=== PATIENT | male | born 1945 | race Caucasian/White ===

== ENCOUNTER → 2016-08-11 | Outpatient (CLI) | payer MEDICARE, OTHER ==
[~2016-08-11] MED LIST: ALBU8.5H2 IH; ASCO1TAB36 PO; BUDE10.22 IH; CYAN1TAB26 PO; IPRA3AMP11 INH; METF500T4 PO; MULT-850 PO; ROSU20TA14 PO; SAWP1CAP PO
--- OUTSIDE RECORDS SUMMARY | 2016-08-11 08:27 | XMS REPORT | Continuity of Care Document ---
Author Author [facility] Organization [facility] Address Unknown Phone Unavailable Allergies Active Description Code Type Severity Reaction Onset Reported/Identified Relationship to Patient Clinical Status Yes No Known Drug Allergies [id number] Drug Allergy Unknown N/ A 07/25/2014 Medications Problems Date Dx Coded Attending Type Code Diagnosis Diagnosed By 07/23/2014 Ot 562.10 07/23/2014 Ot 599.70 07/25/2014 Ot 562.10 07/25/2014 Ot 599.70 07/25/2014 MIKE COY, ALAINA Haywood Ot 562.10 DIVERTICULOSIS COLON (W/O MENT OF HEMORR 07/25/2014 MIKE COY, ALAINA Haywood Ot V12.72 PERSONAL HISTORY OF COLONIC POLYPS 07/25/2014 MIKE COY, ALAINA Haywood Ot V16.0 FAMILY HX-GI MALIGNANCY 07/25/2014 MKIE COY, ALAINA Haywood Ot V76.51 SCREEN MAL NEOP-COLON 09/27/2014 Ot 786.09 10/04/2014 Ot 786.09 10/08/2014 MIKE COY, ALAINA Haywood Ot V72.84 10/08/2014 MIKE COY, ALAINA Haywood Ot V72.84 10/08/2014 MIKE COY, ALAINA Haywood Ot V72.84 10/09/2014 MIKE COY, ALAINA [place] Ot V72.84 10/09/2014 MIKE COY, ALAINA Haywood Ot V72.84 10/09/2014 MIKE COY, ALAINA Haywood Ot V72.84 01/22/2015 Ot 562.10 01/22/2015 Ot 599.70 01/22/2015 MIKE COY, ALAINA Haywood Ot V72.84 01/22/2015 Ot 786.09 01/22/2015 REN MATIAS APRN Ot 786.09 01/22/2015 REN MATIAS APRN Ot 786.09 02/14/2015 REN MATIAS APRN Ot 786.09 02/20/2015 REN MATIAS APRN Ot 786.09 01/29/2016 Ot 562.10 DIVERTICULOSIS COLON (W/O MENT OF HEMORR 01/29/2016 Ot 599.70 HEMATURIA, UNSPECIFIED 01/29/2016 MIKE COY, ALAINA Haywood Ot V72.84 EXAM PRE-OPERATIVE NOS 01/29/2016 Ot 786.09 RESPIRATORY ABNORM NEC 01/29/2016 REN MATIAS APRN Ot 786.09 RESPIRATORY ABNORM NEC 01/29/2016 HUBERT CHANG DO Ot J44.1 CHRONIC OBSTRUCTIVE PULMONARY DISEASE W 01/29/2016 HUBERT CHANG DO Ot J44.1 CHRONIC OBSTRUCTIVE PULMONARY DISEASE W 01/30/2016 HUBERT CHANG DO M Ot J44.9 CHRONIC OBSTRUCTIVE PULMONARY DISEASE, U 01/30/2016 HUBERT CHANG DO Ot R06.00 DYSPNEA, UNSPECIFIED 01/30/2016 HUBERT CHANG DO M Ot R91.1 SOLITARY PULMONARY NODULE 02/04/2016 HUBERT CHANG DO Ot J44.9 CHRONIC OBSTRUCTIVE PULMONARY DISEASE, U 02/04/2016 HUBERT CHANG DO M Ot R06.00 DYSPNEA, UNSPECIFIED 02/04/2016 BERNARDOHUBERT JASSO DO M Ot R91.1 SOLITARY PULMONARY NODULE 02/20/2016 HUBERT CHANG DO Ot J44.9 CHRONIC OBSTRUCTIVE PULMONARY DISEASE, U 02/20/2016 HUBERT CHANG DO M Ot R06.00 DYSPNEA, UNSPECIFIED 02/20/2016 HUBERT CHANG DO M Ot R91.1 SOLITARY PULMONARY NODULE 02/26/2016 HUBERT CHANG DO Ot J44.9 CHRONIC OBSTRUCTIVE PULMONARY DISEASE, U 02/26/2016 HUBERT CHANG DO M Ot R06.00 DYSPNEA, UNSPECIFIED 02/26/2016 HUBERT CHANG DO Ot R91.1 SOLITARY PULMONARY NODULE Procedures Results Encounters ACCT No. Visit Date/Time Discharge Status Pt. Type Provider Facility Loc./Unit Complaint [id number] 01/20/2015 09:40:00 2014 23:59:59 CLS Outpatient REN MATIAS APRN [facility] RAD DYSPNEA [id number] 07/25/2014 06:43:00 2014 10:10:00 DIS Outpatient ALAINA MCKEON MD [facility] SDC HX POLYPS [id number] 07/24/2014 05:51:00 2014 23:59:59 CLS Outpatient ALAINA MCKEON MD [facility] PREOP HX DIVERTICULITIS [id number] 01/29/2016 10:00:00 ACT Outpatient HUBERT CHANG DO [facility] RAD COPD [id number] 09/02/2014 15:32:00 Document Registration [id number] 07/17/2012 09:01:00 Document Registration
--- NOTE | 2016-08-11 10:03 | Diagnostic Imaging Report ---
PROCEDURE: CT chest without contrast. TECHNIQUE: Multiple contiguous axial images were obtained through the chest without the use of intravenous contrast. INDICATION: Lung nodules, emphysema. COMPARISON: The previous CT chest exam of 09/02/2014 noted emphysematous changes involving both lungs as well as multiple small (0.6 cm or less) pulmonary nodules. These nodules seem stable on the subsequent CT chest examinations of 01/20/2015 and 01/29/2016. The 01/29/2016 exam did note a new area of increased density in the medial aspect of the left lung base. FINDINGS: On this exam, the pulmonary nodule seen previously appear stable. Most likely they are benign. The 9 mm nodular density in the medial aspect of the left lung base noted on the prior study is not visualized on this study. I suspect that density was secondary to a small atelectasis and/or infiltrate. There are still alveolar/interstitial infiltrates in both lung bases and the density in the right lung base is somewhat greater than on the prior exam. This may be secondary to mild acute pneumonia/atelectasis. Clinical followup is recommended. The heart size is within normal limits. The aorta is stable in appearance. There is no obvious mediastinal or hilar adenopathy. The thyroid gland is unremarkable. The sections through the upper abdomen fail to show any sign of an acute abnormality. The bone windows show no sign of a fracture or for destructive lesion. IMPRESSION: 1. The small pulmonary nodules seen on the previous exams are again evident and do not appear to have changed adversely. Most likely, these nodules are benign. As the nodules appear stable over a roughly two year period, I do not feel that any further CT surveillance is necessary. 2. The nodular density in the left lung base seen previously is no longer evident. However, there does seem to be a small alveolar/interstitial infiltrate in the right lower lobe. This may be related to mild acute pneumonia/atelectasis. Clinical followup is recommended. 3. There is no acute cardiopulmonary abnormality noted otherwise. Dictated by: Dictated on workstation # [id number]
== END ==
LOC: RAD 08:24
PROVIDERS: ATTEND Nurse Practitioner Family
DX: R06.00 Dyspnea, unspecified (principal); R91.1 Solitary pulmonary nodule; J43.9 Emphysema, unspecified; Z72.0 Tobacco use
CPT/HCPCS: 71250

== ENCOUNTER → 2017-07-04 | Outpatient (CLI) | payer MEDICARE ==
--- NOTE | 2017-07-04 12:12 | Diagnostic Imaging Report ---
PROCEDURE: CT chest without contrast. TECHNIQUE: Multiple contiguous axial images were obtained through the chest without the use of intravenous contrast. INDICATION: Lung nodule. Exam compared with studies most recently 08/11/2016. FINDINGS: Bibasilar posterior sulcal partial atelectasis improved from the prior. There is some mild regional cylindrical bronchiectasis. Some chronic airway thickening is a redemonstrated finding. Heterogeneous air trapping and features of centrilobular emphysema chronic. No new or dominant lung mass. No suspicious nodularity. No evidence for thoracic adenopathy. IMPRESSION: Improvements in dependent basilar atelectasis. Underlying COPD and mild bronchiectasis chronic. No new mass or adverse development. Dictated by: Dictated on workstation # [id number]
== END ==
LOC: RAD 10:22
PROVIDERS: ATTEND Nurse Practitioner Family
DX: J98.11 Atelectasis (principal); J44.9 Chronic obstructive pulmonary disease, unspecified; R91.1 Solitary pulmonary nodule; Z72.0 Tobacco use
CPT/HCPCS: 71250

== ENCOUNTER → 2018-08-23 | Outpatient (CLI) | payer MEDICARE ==
--- NOTE | 2018-08-23 18:44 | Diagnostic Imaging Report ---
INDICATION: [id number] smoking history, cessation one year ago. COMPARISON: 07/04/2017. FINDINGS: Some bibasilar atelectatic changes and curvilinear subpleural zones of scarring stable from prior. Few bibasilar subcentimeter juxtapleural nodular foci unchanged likely secondary to the scarring itself. No dominant or suspect lung mass. No spiculated lesion. No evidence for adenopathy. No effusion or pneumothorax. Some heterogeneous air trapping most pronounced in the apices unchanged. Some mild central cylindrical bronchiectasis and mild thickening of the ectatic airways stable. IMPRESSION: Air trapping, COPD, airway ectasia, thickening with basilar scarring, and subpleural benign nodules unchanged. No suspicious finding. LUNG-RADS CATEGORY: 2 - Benign appearance or behavior. Solid nodule(s): <6mm OR new <4mm. Continued low-dose CT follow-up in one year's time recommended. Dictated by: Dictated on workstation # [id number]
== END ==
LOC: RAD 10:17
PROVIDERS: ATTEND Nurse Practitioner Family
DX: Z12.2 Encounter for screening for malignant neoplasm of respiratory organs (principal); J43.9 Emphysema, unspecified; R91.8 Other nonspecific abnormal finding of lung field; Z87.891 Personal history of nicotine dependence

== ENCOUNTER → 2019-08-20 | Outpatient (CLI) | payer MEDICARE ==
[~2019-08-20] MED LIST changes: +RT-ALBUTEROL SULF 2.5 MG/3 ML PRE-MIX VIAL INH ONE
== END ==
LOC: RT 09:20
PROVIDERS: ATTEND Internal Medicine Critical Care Medicine
DX: J43.9 Emphysema, unspecified (principal); R91.1 Solitary pulmonary nodule; Z72.0 Tobacco use
CPT/HCPCS: 94060; 94726; 94729

== ENCOUNTER → 2019-08-27 | Outpatient (CLI) | payer MEDICARE ==
[~2019-08-27] MED LIST changes: -RT-ALBUTEROL SULF 2.5 MG/3 ML PRE-MIX VIAL INH ONE
--- NOTE | 2019-08-27 09:06 | Diagnostic Imaging Report ---
EXAM: CT CHEST SCREENING WO. INDICATION: 50 pack year smoking history. Quit 1.5 years ago. Cough. COMPARISON: Low-dose lung screening chest CT 08/23/2018. FINDINGS: Advanced centrilobular emphysema. Diffuse mild bronchiectasis and bronchial wall thickening is chronic. Stable scarring in the lung bases. Stable 0.5 cm pulmonary nodule in the right middle lobe. Stable 0.5 cm solid pulmonary nodule in the right lower lobe. Scattered 0.2 to 0.4 cm pulmonary nodules in the left lower lobe. Stable 0.7 cm solid pulmonary nodule in the left upper lobe. No solid endobronchial lesions. There are some secretions in the airways. No pleural effusion or pneumothorax. The osseous structures are intact. Moderate atherosclerotic calcifications. Normal heart size. No pericardial effusion. No mediastinal, hilar, or axillary lymphadenopathy. No acute findings in the visualized upper abdomen. IMPRESSION: 1. Stable bilateral solid pulmonary nodules as above. No new suspicious pulmonary nodules. Recommend continued annual screening with low-dose chest CT in 12 months. 2. Advanced centrilobular emphysema, bronchial wall thickening, bronchiectasis, and scattered scarring are stable. Lung-RADS category: 2. MODIFIER: None. Please note that the low-dose technique of this chest CT is of nondiagnostic quality. The study is only intended for lung cancer screening in high-risk patients. Dictated by: Dictated on workstation # [id number]
== END ==
LOC: RAD 08:14
PROVIDERS: ATTEND Nurse Practitioner Family
DX: Z12.2 Encounter for screening for malignant neoplasm of respiratory organs (principal); J43.2 Centrilobular emphysema; J47.9 Bronchiectasis, uncomplicated; J98.09 Other diseases of bronchus, not elsewhere classified; R91.8 Other nonspecific abnormal finding of lung field; Z72.0 Tobacco use

== ENCOUNTER 2020-05-21 00:05 | Observation (INO) | payer MEDICARE ==
[2020-05-21] VITALS (15 sets, daily range): BP systolic 132–160; BP diastolic 70–88
[~2020-05-21] VITALS: Ht 175 cm; Wt 81.1 kg
[2020-05-21 00:58] LABS: BASOPHILS # (AUTO) 0.1 10^3/uL (0.0-0.1); BASOPHILS % (AUTO) 1 % (0-10); EOSINOPHILS # (AUTO) 0.3 10^3/uL (0.0-0.3); EOSINOPHILS % (AUTO) 1 % (0-10); HEMATOCRIT 42 % (40-54); HEMOGLOBIN 13.9 g/dL (13.3-17.7); LYMPHOCYTES # (AUTO) 1.9 10^3/uL (1.0-4.0); LYMPHOCYTES % (AUTO) 7 % (12-44); MEAN CORPUSCULAR HEMOGLOBIN 29 pg (25-34); MEAN CORPUSCULAR HGB CONC 33 g/dL (32-36); MEAN CORPUSCULAR VOLUME 88 fL (80-99); MONOCYTES % (AUTO) 8 % (0-12); NEUTROPHILS # (AUTO) 21.9 10^3/uL (1.8-7.8); NEUTROPHILS % (AUTO) 83 % (42-75); PLATELET COUNT 262 10^3/uL (130-400); WHITE BLOOD COUNT 26.4 10^3/uL (4.3-11.0)
[2020-05-21] MEDS ORDERED: methylPREDNISolone 125 MG (Solu-MEDROL) VIAL IVP ONE (01:00)
[2020-05-21] MEDS ORDERED: ALBUTEROL/IPRATROP (COMBIVENT RESPIMAT) 4 GM INHALER IH PRN (01:00)
[2020-05-21] MEDS: NITROGLYCERIN 0.4 MG SL TABS BTL 25'S SL PRN ×3 (01:00→01:16)
--- NOTE | 2020-05-21 01:06 | NUR ---
O2 SATS 97-99% ON 4L VIA NC. O2 DECREASED TO 3L AT THIS TIME.
--- NOTE | 2020-05-21 01:09 | ED Chest Pain ---
General Chief Complaint: Chest Pain Stated Complaint: CP Nursing Triage Note: sudden onset chest pain since 199905/20/2020. c/o pain with inspiration. Nursing Sepsis Screen: No Definite Risk Source: patient Exam Limitations: no limitations History of Present Illness Date Seen by Provider: May 21, 2020 Time Seen by Provider: 00:30 Initial Comments This is 74-year-old gentleman presents to the emergency room with fairly abrupt onset of central chest pain and labored breathing starting around 20:00 last night. He is moving air poorly. He has known history of COPD and takes Symbicort and albuterol inhalers. He quit smoking many years ago. He denies any cardiac history except hypertension. He is notably hypertensive on assessment. He denies any cough, fever, nausea, vomiting, diarrhea, or other symptoms of acute infectious illness. Patient took a full aspirin this evening at home. Patient does sometimes use oxygen in the mornings as needed at home. He does not wear it continuously. Oxygen saturations on arrival were in the low 80s on room air and he was in respiratory distress. His chest pain is described as sharp and in the center of the chest, worsening with inspiration. Allergies and Home Medications Allergies Coded Allergies: No Known Drug Allergies (Unverified , 07/25/14) Home Medications Albuterol 8.5 Gm Hfa.aer.ad, 2 PUFF IH RTQ4HR, (Reported) 1 PUFFS Albuterol/Ipratropium 3 Ml Nebu, 3 ML INH Q4H PRN for PRN, (Reported) Ascorbate Calcium/Bioflav 1 Each Tablet, 1 EACH PO BID, (Reported) Budesonide/Formoterol Fumarate 10.2 Gm Hfa.aer.ad, 2 PUFF IH DAILY, (Reported) Cyanocobalamin/Folic Acid 1 Each Tablet, 1 EACH PO DAILY, (Reported) Metformin Hcl 500 Mg Tablet, 500 MG PO BID, (Reported) Multivitamins W-Minerals/Lut 1 Each Tablet, 1 EACH PO DAILY, (Reported) Rosuvastatin Calcium 20 Mg Tablet, 1 EACH PO DAILY, (Reported) Sawpalmtofrtxt/Zinc Picolinate 1 Each Capsule, 1 EACH PO BID, (Reported) Patient Home Medication List Home Medication List Reviewed: Yes Review of Systems Review of Systems Constitutional: no symptoms reported EENTM: No Symptoms Reported Respiratory: See HPI Cardiovascular: See HPI Gastrointestinal: No Symptoms Reported Genitourinary: No Symptoms Reported Musculoskeletal: no symptoms reported Skin: no symptoms reported Psychiatric/Neurological: No Symptoms Reported Endocrine: No Symptoms Reported Hematologic/Lymphatic: No Symptoms Reported Past Pplryoc-Ajlcus-Krdyjv Hx Past Med/Social Hx: Reviewed Nursing Past Med/Soc Hx Patient Social History Alcohol Use: Denies Use Recreational Drug Use: No Smoking Status: Former Smoker 2nd Hand Smoke Exposure: No Recent Foreign Travel: No Contact w/Someone Who Travel: No Recent Infectious Disease Expo: No Recent Hopitalizations: No Immunizations Up To Date Tetanus Booster (TDap): Less than 5yrs Date of Pneumonia Vaccine: Jun 20, 2013 Date of Influenza Vaccine: Mar 25, 2014 Seasonal Allergies Seasonal Allergies: No Past Medical History Surgeries: Yes Abdominal (Colonoscopy with polypectomy), Adenoidectomy, Tonsillectomy Respiratory: Yes COPD Cardiac: Yes High Cholesterol, Hypertension Neurological: No Genitourinary: No Gastrointestinal: No Musculoskeletal: No Endocrine: Yes Diabetes, Non-Insulin dep HEENT: No Cancer: No Psychosocial: No Integumentary: No Blood Disorders: No Physical Exam Vital Signs Vital Signs - First Documented Capillary Refill : Less Than 3 Seconds Height, Weight, BMI Height: 5'9.00" Weight: 175lbs. oz. [id number]; 25.00 BMI Method: General Appearance: WD/WN, Moderate Distress HEENT: PERRL/EOMI, Normal ENT Inspection Neck: Normal Inspection Respiratory: Lungs Clear, No Accessory Muscle Use, No Respiratory Distress, Decreased Breath Sounds, Other (Diminished with decreased air movement. No luisa wheezing. Prolonged expiratory phase with lip pursing.) Cardiovascular: Regular Rate, Rhythm, No Edema, No Murmur, Normal Peripheral Pulses Gastrointestinal: Normal Bowel Sounds, Non Tender, Soft Extremity: Normal Inspection, Non Tender, No Calf Tenderness, No Pedal Edema Neurologic/Psychiatric: Alert, Oriented x3, No Motor/Sensory Deficits, Normal Mood/Affect, jewelry coater II-XII Norm as Tested Skin: Normal Color, Warm/Dry Focused Exam Lactate Level 05/21/20 01:40: Lactic Acid Level 1.38 Lactic Acid Level Laboratory Tests Test 05/21/20 01:40 Lactic Acid Level 1.38 MMOL/L (0.50-2.00) Progress/Results/Core Measures Results/Orders Lab Results Laboratory Tests Test 12/2/20 00:45 05/21/20 00:50 05/21/20 01:40 05/21/20 02:55 Range/Units White Blood Count 26.4 H 4.3-11.0 10^3/uL Red Blood Count 4.79 4.30-5.52 10^6/uL Hemoglobin 13.9 13.3-17.7 g/dL Hematocrit 42 40-54 % Mean Corpuscular Volume 88 80-99 fL Mean Corpuscular Hemoglobin 29 25-34 pg Mean Corpuscular Hemoglobin Concent 33 32-36 g/dL Red Cell Distribution Width 14.7 H 10.0-14.5 % Platelet Count 262 130-400 10^3/uL Mean Platelet Volume 9.0 9.0-12.2 fL Immature Granulocyte % (Auto) 1 % Neutrophils (%) (Auto) 83 H 42-75 % Lymphocytes (%) (Auto) 7 L 12-44 % Monocytes (%) (Auto) 8 0-12 % Eosinophils (%) (Auto) 1 0-10 % Basophils (%) (Auto) 1 0-10 % Neutrophils # (Auto) 21.9 H 1.8-7.8 10^3/uL Lymphocytes # (Auto) 1.9 1.0-4.0 10^3/uL Monocytes # (Auto) 2.0 H 0.0-1.0 10^3/uL Eosinophils # (Auto) 0.3 0.0-0.3 10^3/uL Basophils # (Auto) 0.1 0.0-0.1 10^3/uL Immature Granulocyte # (Auto) 0.3 H 0.0-0.1 10^3/uL Neutrophils % (Manual) 81 % Lymphocytes % (Manual) 8 % Monocytes % (Manual) 9 % Band Neutrophils 2 % Blood Morphology Comment NORMAL Prothrombin Time 12.8 12.2-14.7 SEC INR Comment 0.9 0.8-1.4 Activated Partial Thromboplast Time 32 24-35 SEC D-Dimer < 0.27 0.00-0.49 UG/ML Sodium Level 132 L 135-145 MMOL/L Potassium Level 3.8 3.6-5.0 MMOL/L Chloride Level 95 L 98-107 MMOL/L Carbon Dioxide Level 24 21-32 MMOL/L Anion Gap 13 5-14 MMOL/L Blood Urea Nitrogen 20 H 7-18 MG/DL Creatinine 0.94 0.60-1.30 MG/DL Estimat Glomerular Filtration Rate > 60 BUN/Creatinine Ratio 21 Glucose Level 130 H 70-105 MG/DL Calcium Level 9.6 8.5-10.1 MG/DL Corrected Calcium 9.3 8.5-10.1 MG/DL Magnesium Level 1.8 1.6-2.4 MG/DL Total Bilirubin 0.4 0.1-1.0 MG/DL Aspartate Amino Transf (AST/SGOT) 16 5-34 U/L Alanine Aminotransferase (ALT/SGPT) 15 0-55 U/L Alkaline Phosphatase 68 40-136 U/L Lactate Dehydrogenase 130 125-220 U/L Myoglobin 48.5 10.0-92.0 NG/ML Troponin I < 0.028 <0.028 NG/ML C-Reactive Protein High Sensitivity 0.30 0.00-0.50 MG/DL B-Type Natriuretic Peptide 10.4 <100.0 PG/ML Total Protein 6.9 6.4-8.2 GM/DL Albumin 4.4 3.2-4.5 GM/DL Procalcitonin 0.02 <0.10 NG/ML Coronavirus 2019 (NANCY) Negative Negative Lactic Acid Level 1.38 0.50-2.00 MMOL/L Urine Color YELLOW Urine Clarity CLEAR Urine pH 6.5 5-9 Urine Specific [place] 1.015 L 1.016-1.022 Urine Protein NEGATIVE NEGATIVE Urine Glucose (UA) NEGATIVE NEGATIVE Urine Ketones 1+ H NEGATIVE Urine Nitrite NEGATIVE NEGATIVE Urine Bilirubin NEGATIVE NEGATIVE Urine Urobilinogen 0.2 < = 1.0 MG/DL Urine Leukocyte Esterase NEGATIVE NEGATIVE Urine RBC (Auto) NEGATIVE NEGATIVE Urine RBC NONE /HPF Urine WBC NONE /HPF Urine Squamous Epithelial Cells RARE /HPF Urine Crystals NONE /LPF Urine Bacteria NEGATIVE /HPF Urine Casts NONE /LPF Urine Mucus SMALL H /LPF Urine Culture Indicated CULTURE PENDING Micro Results Microbiology 05/21/20 Influenza Types A,B Antigen (LUIS) - Final, Complete My Orders Orders - HORACE CHIU MD Cbc With Automated Diff (05/21/20 00:46) Magnesium (05/21/20 00:46) Chest 1 View, Ap/Pa Only (05/21/20 00:46) Ekg Tracing (05/21/20 00:46) Comprehensive Metabolic Panel (05/21/20 00:46) Myoglobin Serum (05/21/20 00:46) Protime With Inr (05/21/20 00:46) Partial Thromboplastin Time (05/21/20 00:46) O2 (05/21/20 00:46) Monitor-Rhythm Ecg Trace Only (05/21/20 00:46) Lipid Panel (05/22/20 06:00) Ed Iv/Invasive Line Start (05/21/20 00:46) BNP (05/21/20 00:46) Troponin I (05/21/20 00:46) Nitroglycerin 0.4 Mg Btl 25's (Nitrostat (05/21/20 01:00) Albuterol/Ipratropium Inhaler (Combivent (05/21/20 01:00) Rt Request For Service (05/21/20 00:46) Methylprednisolone Sod Succ (Solu-Medrol (05/21/20 01:00) Procalcitonin (Pct) (05/21/20 00:48) Hs C Reactive Protein (05/21/20 00:48) LDH (05/21/20 00:48) Influenza A And B Antigens (05/21/20 00:48) Covid 19 Inhouse Test (05/21/20 00:48) Fibrin Degradation Products (05/21/20 00:45) Manual Differential (05/21/20 00:45) Ns Iv 1000 Ml (Sodium Chloride 0.9%) (05/21/20 01:24) Blood Culture (05/21/20 01:35) Sputum Culture (05/21/20 01:35) Urinalysis (05/21/20 01:35) Urine Culture (05/21/20 01:35) Vital Signs Adult Sepsis Patie Q15M (05/21/20 01:35) Remove Rings In Anticipation O (05/21/20 01:35) Lactic Acid Analyzer (05/21/20 01:35) Morphine Injection (Morphine Injection (05/21/20 01:51) Ct Angio Chest W (05/21/20 02:05) Ceftriaxone For Iv Use (Rocephin For I (05/21/20 02:15) Ketorolac Injection (Toradol Injection) (05/21/20 03:00) Coronavirus Sars-Cov-2 So 2018 (05/21/20 03:13) Medications Given in ED Current Medications Medications Dose Ordered Sig/Missy Route Start Time Stop Time Status Last Admin Dose Admin Albuterol/ Ipratropium 4 PUFF QID PRN IH 05/21/20 01:00 05/21/20 00:57 4 GM Ceftriaxone Sodium 1000 mg/ Sterile Water 10 ml @ 200 mls/hr ONCE ONCE IV 05/21/20 02:15 05/21/20 02:17 DC 05/21/20 02:34 200 MLS/HR Ketorolac Tromethamine 30 mg ONCE ONCE IVP 05/21/20 03:00 05/21/20 03:02 DC 05/21/20 03:25 30 MG Methylprednisolone Sodium Succinate 125 mg ONCE ONCE IVP 05/21/20 01:00 05/21/20 01:01 DC 05/21/20 00:57 125 MG Nitroglycerin 0.4 mg UD PRN SL 05/21/20 01:00 05/21/20 01:18 DC 05/21/20 01:16 0.4 MG Sodium Chloride 1,000 ml @ ud STK-MED ONCE .ROUTE 05/21/20 01:24 05/21/20 01:26 DC 05/21/20 01:28 999 MLS/HR Vital Signs/I&O 05/21/20 05/21/20 05/21/20 00:33 00:33 00:34 Temp 35.9 Pulse 75 Resp 16 B/P (MAP) 170/101 (124) Pulse Ox 98 O2 Delivery Nasal Cannula Nasal Cannula Nasal Cannula O2 Flow Rate 2.00 4.0 4.00 Blood Pressure Mean: 124 Progress Progress Note #1: Time: 01:12 Progress Note Patient seen and examined. Combivent inhaler administered along with Solu-Medrol and nitroglycerin. He is beginning to feel better. Supplemental oxygen was applied at 4 L/min. Chest pain is dissipating but still present. Progress Note #2: Time: 03:09 Progress Note Patient has a history of pulmonary nodules that have been followed by CT scan. He also continues to have some fairly significant pleuritic chest pain. For this reason a CT angiogram of the chest was obtained. It was relatively stable from prior. We will admit him for COPD exacerbation and chest pain. Toradol will be given for further treatment of the pain. Because of leukocytosis we will continue with antibiotics. Rocephin is being given in the ER. Steroids will also be continued. Covid PCR swab was obtained and patient remains PUI. Initial ECG Impression Date: May 21, 2020 Initial ECG Impression Time: 00:39 Initial ECG Rate: 67 Initial ECG Rhythm: Normal Sinus Comment Normal sinus rhythm with no ST elevation or depression. Short GA interval with RBBB. Some artifact obscuring interpretation. Diagnostic Imaging Diagonstic Imaging: Xray Plain Films/CT/US/NM/MRI: chest Comments Chest x-ray reviewed by me and stat rad report reviewed. Probable COPD with mild bibasilar interstitial opacities. Diagonstic Imaging: CT Plain Films/CT/US/NM/MRI: chest Comments CT angiogram of the chest viewed by me and stat rad report reviewed. There is no evidence of pulmonary emboli or mass. Bibasilar infiltrates were relatively unchanged from prior. Departure Communication (Admissions) Time/Spoke to Admitting Phy: 03:00 Dr. Angeli Posada and Dr. Springer consulted by messaging. Impression Primary Impression: Chest pain Qualified Codes: R07.9 - Chest pain, unspecified Additional Impression: COPD exacerbation Disposition: HOME, SELF-CARE Condition: Improved Admissions Decision to Admit Reason: Admit from ER (General) Decision to Admit/Date: May 21, 2020 Time/Decision to Admit Time: 00:45 Departure-Patient Inst. Referrals: MINI MCCALLUM DO (PCP/Family) Primary Care Physician HORACE CHIU MD May 21, 2020 01:09
[2020-05-21 01:14] LABS: ALBUMIN 4.4 GM/DL (3.2-4.5); CHLORIDE 95 MMOL/L (98-107); POTASSIUM 3.8 MMOL/L (3.6-5.0); SODIUM 132 MMOL/L (135-145)
[2020-05-21 01:15] LABS: CALCIUM 9.6 MG/DL (8.5-10.1)
[2020-05-21 01:16] LABS: GLUCOSE 130 MG/DL (70-105); TOTAL PROTEIN 6.9 GM/DL (6.4-8.2)
[2020-05-21 01:17] LABS: CARBON DIOXIDE 24 MMOL/L (21-32)
[2020-05-21 01:18] LABS: BILIRUBIN,TOTAL 0.4 MG/DL (0.1-1.0)
[2020-05-21 01:20] LABS: ALKALINE PHOSPHATASE 68 U/L (40-136); CREATININE SERUM 0.94 MG/DL (0.60-1.30); GFR ESTIMATED > 60
[2020-05-21 01:21] LABS: BUN/CREATININE RATIO 21
[2020-05-21 01:22] LABS: MAGNESIUM 1.8 MG/DL (1.6-2.4)
[2020-05-21 01:23] LABS: ALANINE AMINOTRANSFERASE 15 U/L (0-55)
[2020-05-21] MEDS ORDERED: NS IV 1000 ML 1,000 ML ONE (01:24)
[2020-05-21 01:25] LABS: BAND NEUTROPHILS 2 %; LYMPHOCYTES % (MANUAL) 8 %; MONOCYTES % (MANUAL) 9 %; NEUTROPHILS % (MANUAL) 81 %
[2020-05-21 01:26] LABS: RBC MORPH NORMAL
--- NOTE | 2020-05-21 01:27 | NUR ---
DR. CHIU NOTIFIED OF BP DROPPING TO 85/54 POST 3RD NITRO SL. NEW ORDERS FOR NS 1L WIDE OPEN AND STARTED AT THIS TIME.
--- NOTE | 2020-05-21 01:30 | NUR ---
BP INCREASED TO 92/62 WITH NS INFUSING.
--- NOTE | 2020-05-21 01:35 | NUR ---
BP 118/60. PT STATES HE IS FEELING BETTER.
[2020-05-21 01:42] LABS: FIBRIN DEGRADATION PRODUCTS < 0.27 UG/ML (0.00-0.49); INR 0.9 (0.8-1.4); PARTIAL THROMBOPLASTIN TIME 32 SEC (24-35); PROTHROMBIN TIME PATIENT 12.8 SEC (12.2-14.7)
[2020-05-21] MEDS ORDERED: morphine INJ 10 MG/ML 1ML (SYR OR VIAL) IVP STA (01:51)
--- NOTE | 2020-05-21 02:05 | NUR ---
DR. CHIU CALLED AND UPDATED PT WHO IS WAITING IN VEHICLE R/T NO VISITORS IN WAITING ROOM D/T COVID. PT TO HAVE CT SCAN WHICH WILL TAKE AT LEAST AN HOUR FOR PROCEDURE AND RESULTS. DR. CHIU TO CALL WITH RESULTS AND FURTHER PLAN OF CARE.
[2020-05-21] MEDS ORDERED: cefTRIAXone FOR IV USE 1,000 MG in WATER (STERILE) FOR INJECTION 10 ML IV ONE (02:15)
[2020-05-21] MEDS ORDERED: KETOROLAC 30 MG/ML VIAL IVP ONE (03:00)
[2020-05-21 03:05] LABS: BILIRUBIN,URINE NEGATIVE (NEGATIVE); CLARITY,URINE CLEAR; COLOR,URINE YELLOW; GLUCOSE, URINE (UA) NEGATIVE (NEGATIVE); KETONES,URINE 1+ (NEGATIVE); LEUKOCYTE ESTERASE ,URINE NEGATIVE (NEGATIVE); NITRITE,URINE NEGATIVE (NEGATIVE); PH,URINE 6.5 (5-9); PROTEIN,URINE NEGATIVE (NEGATIVE)
[2020-05-21 03:28] LABS: BACTERIA,URINE NEGATIVE /HPF; SQUAMOUS EPITHELIAL CELL,UR RARE /HPF
--- NOTE | 2020-05-21 05:10 | NUR ---
ANGELO FRANZ admitted to room 425-1, with an admitting diagnosis of COPD EXACERBATION, PUI, CHEST PAIN, LEUKOCYTOSIS on 05/21/20 from [facility] via WHEELCHAIR, accompanied by STAFF.ANGELO FRANZ introduced to surroundings, call light, bed controls, phone, TV, temperature control, lights, meal times, smoking policy, visitor policy, side rail policy, bathrooms and showers. Patient Rights given to patient in the handbook. ANGELO FRANZ verbalizes understanding that [facility] is not responsible for the loss or damage to any personal effects or valuables that are kept in the patients possession during their hospitalization. s purpose.
[2020-05-21] MEDS ORDERED: HOLD METFORMIN - RECEIVED CONTRAST 20 ML VIAL IV SCH (05:45)
[2020-05-21] MEDS ORDERED: NS 100 ML (IVPB) BAG IV ONE (05:45)
[2020-05-21] MEDS ORDERED: IOHEXOL 350 MG/ML 100 ML (OMNIPAQUE 350) VIAL IV ONE (05:45)
--- NOTE | 2020-05-21 06:09 | Diagnostic Imaging Report ---
PROCEDURE: CT angiography of the chest with contrast. TECHNIQUE: Multiple contiguous axial images were obtained through the chest after uneventful bolus administration of intravenous contrast. 3D reconstructed CTA MIP acquisitions were also performed. Auto Exposure Controls were utilized during the CT exam to meet ALARA standards for radiation dose reduction. INDICATION: Chest pain. COMPARISON: 08/27/2019. FINDINGS: The heart size appears slightly enlarged. There is no pericardial effusion. The pulmonary arteries and aorta are grossly unremarkable. There is no lymphadenopathy. Coronary artery disease is present. Chronic scarring is seen in both lung bases. Underlying infiltrate is not fully excluded. This is increased from the prior exam. There is no pneumothorax or effusion. Centrilobular emphysema is present. Visualized upper abdominal solid organs are unremarkable. Osseous structures are age appropriate. IMPRESSION: 1. Coronary artery disease. 2. Centrilobular emphysema. 3. No pulmonary embolism. 4. Increasing scarring in the bases. Underlying infiltrates are not excluded. Please correlate clinically. Dictated by: Dictated on workstation # [id number]
--- NOTE | 2020-05-21 06:14 | Diagnostic Imaging Report ---
INDICATION: Chest pain COMPARISON: None FINDINGS: Single view of the chest demonstrates cardiac enlargement with slight central vascular congestion. Basilar infiltrates and/or atelectasis is seen in the left base. Trace bilateral pleural effusions are seen. There is no pneumothorax. Osseous structures are stable. IMPRESSION: 1. Cardiac enlargement with central vascular congestion. 2. Basilar infiltrates and/or atelectasis 3. Probable trace bilateral pleural effusions. Dictated by: Dictated on workstation # [id number]
[2020-05-21] MEDS ORDERED: morphine INJ 4 MG/ML 1 ML (VIAL/SYRINGE) IV PRN (06:30)
[2020-05-21] MEDS ORDERED: ONDANSETRON 4 MG/2 ML (SDV) Z0FRAN IV PRN (06:30)
[2020-05-21] MEDS ORDERED: IBUPROFEN 600 MG (MOTRIN) TAB PO PRN (06:30)
[2020-05-21] MEDS ORDERED: CATHETER FLUSH 10 ML SYR IV PRN (06:30)
[2020-05-21 06:43] LABS: BASOPHILS % (AUTO) 0 % (0-10); EOSINOPHILS % (AUTO) 0 % (0-10); HEMATOCRIT 41 % (40-54); HEMOGLOBIN 13.4 g/dL (13.3-17.7); LYMPHOCYTES # (AUTO) 0.6 10^3/uL (1.0-4.0); LYMPHOCYTES % (AUTO) 3 % (12-44); MEAN CORPUSCULAR HEMOGLOBIN 29 pg (25-34); MEAN CORPUSCULAR HGB CONC 32 g/dL (32-36); MEAN CORPUSCULAR VOLUME 88 fL (80-99); MEAN PLATELET VOLUME 9.8 fL (9.0-12.2); MONOCYTES # (AUTO) 0.7 10^3/uL (0.0-1.0); MONOCYTES % (AUTO) 3 % (0-12); NEUTROPHILS # (AUTO) 18.4 10^3/uL (1.8-7.8); NEUTROPHILS % (AUTO) 93 % (42-75); PLATELET COUNT 278 10^3/uL (130-400); WHITE BLOOD COUNT 19.9 10^3/uL (4.3-11.0)
[2020-05-21 06:53] LABS: CHLORIDE 96 MMOL/L (98-107); POTASSIUM 4.5 MMOL/L (3.6-5.0); SODIUM 132 MMOL/L (135-145)
[2020-05-21 06:55] LABS: GLUCOSE 150 MG/DL (70-105)
[2020-05-21 06:56] LABS: CARBON DIOXIDE 24 MMOL/L (21-32)
[2020-05-21 06:59] LABS: CREATININE SERUM 0.88 MG/DL (0.60-1.30); GFR ESTIMATED > 60
[2020-05-21 07:00] LABS: BUN/CREATININE RATIO 19
[2020-05-21] MEDS ORDERED: AZITHROMYCIN 500 MG/NS 250 ML IVPB IV ONE ×2 (07:00)
--- NOTE | 2020-05-21 07:35 | NUR ---
DR. ROSARIO NOTIFIED OF NEW CONSULT FOR PT.
[2020-05-21] MEDS: methylPREDNISolone 40 MG/ML (Solu-MEDROL) VIAL IV SCH ×2 (08:16→13:05)
[2020-05-21] MEDS ORDERED: ASPIRIN E.C. 81 MG (ECOTRIN) TAB PO SCH (09:00)
[2020-05-21] MEDS ORDERED: RT-ALBUTEROL INHALER HFA (VENTOLIN HFA) 18 GM IH SCH (10:00)
--- NOTE | 2020-05-21 10:45 | NUR ---
RT INGRID NOTIFIED OF IS ORDER, IS PLACED OUTSIDE PT'S ROOM ON CLEAN CART.
[2020-05-21] MEDS ORDERED: PATIENT MAY USE OWN MEDS, ALL MC SCH (12:00)
--- NOTE | 2020-05-21 13:49 | NUR ---
RT NOTIFIED OF HOME O2 ORDER
--- NOTE | 2020-05-21 13:53 | Short Stay Summary-Hospitalist ---
History of Present Illness HPI/Chief Complaint Pt is a 74yoCM with a PMH of COPD, HTN, HLD, NIDDMII who presented to the ER due to SOB. He states it started suddenly last night and he attempted to use his home inhalers without relief. He does have known COPD and has to wear oxygen at home as times. He was found to be in respiratory distress on arrival to the ER with oxygen saturations in the 80s. This improved with Solu-Medrol and Combivent in the ER along with supplemental oxygen. He also complained of chest pain, Troponin was negative. He was admitted for observation. He reports feeling much better today and would like to DC home. I took oxygen off of him at bedside and his oxygen saturations stayed in the mid 90s. Source: patient Date Seen 05/21/20 Time Seen by a Provider: 13:50 Attending Physician Yaz Suh MD PCP Adriano Landeros DO Referring Physician Date of Admission May 21, 2020 at 03:03 Home Medications & Allergies Home Medications Reviewed patient Home Medication Reconciliation performed by pharmacy medication reconciliations electrical laboratory technician and/or nursing. Patients Allergies have been reviewed. Allergies Allergies Coded Allergies No Known Drug Allergies (Unverified07/25/14) Past Qohlxdn-Dhjcmk-Kveedo Hx Past Med/Social Hx: Reviewed Nursing Past Med/Soc Hx Patient Social History Alcohol Use: Denies Use Recreational Drug Use: No Smoking Status: Former Smoker 2nd Hand Smoke Exposure: No Recent Foreign Travel: No Contact w/other who traveled: No Recent Hopitalizations: No Recent Infectious Disease Expo: No Immunizations Up To Date Tetanus Booster (TDap): Less than 5yrs Date of Pneumonia Vaccine: Jun 20, 2013 Date of Influenza Vaccine: Mar 04, 2020 Seasonal Allergies Seasonal Allergies: No Past Medical History Surgeries: Abdominal (Colonoscopy with polypectomy), Adenoidectomy, Tonsillectomy Cardiac: High Cholesterol, Hypertension Endocrine: Diabetes, Non-Insulin dep History of Blood Disorders: No Family History Reviewed Nursing Family Hx Review of Systems Constitutional: No chills, No fever EENTM: no symptoms reported Respiratory: cough, short of breath, wheezing Cardiovascular: chest pain; No edema, No palpitations Gastrointestinal: no symptoms reported Genitourinary: no symptoms reported Musculoskeletal: no symptoms reported Skin: no symptoms reported Psychiatric/Neurological: No Symptoms Reported Physical Exam Physical Exam Vital Signs Vital Signs - First Documented Capillary Refill : Less Than 3 SecondsLess Than 3 Seconds Height, Weight, BMI Height: 5'9.00" Weight: 175lbs. oz. 79.018808by; 26.48 BMI Method: General Appearance: WD/WN, Moderate Distress HEENT: PERRL/EOMI, Normal ENT Inspection Neck: Normal Inspection Respiratory: Lungs Clear, No Accessory Muscle Use, No Respiratory Distress, Decreased Breath Sounds, Other (Diminished with decreased air movement. No f rank wheezing. 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 Imaging: Reviewed Imaging Report [email or web address] [place], [place] [facility] REC#: [id number] PT STATUS: ADM Tori : 1945 PHYSICIAN: HORACE CHUI MD ADMIT DATE: 05/21/20 Signed Date of Exam:05/21/20 CHEST 1 VIEW, AP/PA ONLY INDICATION: Chest pain COMPARISON: None FINDINGS: Single view of the chest demonstrates cardiac enlargement with slight central vascular congestion. Basilar infiltrates and/or atelectasis is seen in the left base. Trace bilateral pleural effusions are seen. There is no pneumothorax. Osseous structures are stable. IMPRESSION: 1. Cardiac enlargement with central vascular congestion. 2. Basilar infiltrates and/or atelectasis 3. Probable trace bilateral pleural effusions. Dictated by: Dictated on workstation # [id number] Dict: 05/21/20609 Trans: 05/21/20832 ANITA [id number] Interpreted by: JAMIL LI Electronically signed by: JAMIL LI 05/21/20832 [email or web address] [place] NAME: [facility] REC#: [id number] PT STATUS: ADM Tori : 1945 PHYSICIAN: HORACE CHIU MD ADMIT DATE: 05/21/20 Signed Date of Exam:05/21/20 CT ANGIO CHEST W PROCEDURE: CT angiography of the chest with contrast. TECHNIQUE: Multiple contiguous axial images were obtained through the chest after uneventful bolus administration of intravenous contrast. 3D reconstructed CTA MIP acquisitions were also performed. Auto Exposure Controls were utilized during the CT exam to meet ALARA standards for radiation dose reduction. INDICATION: Chest pain. COMPARISON: 08/27/2019. FINDINGS: The heart size appears slightly enlarged. There is no pericardial effusion. The pulmonary arteries and aorta are grossly unremarkable. There is no lymphadenopathy. Coronary artery disease is present. Chronic scarring is seen in both lung bases. Underlying infiltrate is not fully excluded. This is increased from the prior exam. There is no pneumothorax or effusion. Centrilobular emphysema is present. Visualized upper abdominal solid organs are unremarkable. Osseous structures are age appropriate. IMPRESSION: 1. Coronary artery disease. 2. Centrilobular emphysema. 3. No pulmonary embolism. 4. Increasing scarring in the bases. Underlying infiltrates are not excluded. Please correlate clinically. Dictated by: Dictated on workstation # [id number] Dict: 05/21/2005 Trans: 05/21/[address] [place] [address] [id number] Interpreted by: JAMIL LI Electronically signed by: JAMIL LI 05/21/20 0833 Short Stay Diagnosis Discharge Diagnosis-Short Stay Admission Diagnosis COPD Exacerbation Final Discharge Diagnosis COPD Exacerbation Conclusion Plan COPD Exacerbation with lower respiratory tract from CAP Acute on Chronic Respiratory Failure WBC elevated on arrival with basilar infiltrates on CXR CTA negative for PE Rapid COVID negative, PCR pending Troponin negative x2 Pulm and cardiology consulted Pt requesting DC home If continues to do well on room air will DC home with oral abx for pneumonia and steroids and close follow up with PCP/Pulm I called and discussed this with RN at Dr Landeros's office to facilitate follow up Diagnosis/Problems Diagnosis/Problems (1) COPD exacerbation Status: Acute Clinical Quality Measures AMI/AHF: ASA po Prior to arrival: Yes DVT/VTE Risk/Contraindication: Risk Factor Score Per Nursin RFS Level Per Nursing on Admit: 3=High MALU MCNEILL MD May 21, 2020 13:53
[2020-05-21] MEDS ORDERED: CATHETER FLUSH 10 ML SYR IV SCH (14:00)
[2020-05-21] MEDS ORDERED: CEPH-507 PO (14:10)
[2020-05-21] MEDS ORDERED: AZIT250T12 PO (14:10)
[2020-05-21] MEDS ORDERED: PRED10TA22 PO (14:10)
--- NOTE | 2020-05-21 14:58 | Pulmonary Consultation ---
History of Present Illness History of Present Illness Date Seen by Provider: May 21, 2020 Time Seen by Provider: 14:52 Date of Admission History of Present Illness 74yo with hx of COPD and follows in my office presented to ED secondary to sudden pleuritic nonradiating midsternal CP and worsening SOB that started at 2000 last night. No productive cough, No hemoptysis. Pt was found to be hypoxic with sp02 in the 80's upon ED admission. CT of chest shows atelectasis and scarring in the bases. Pt does have oxygen at home that he occasionally uses. Allergies and Home Medications Allergies Coded Allergies: No Known Drug Allergies (Unverified , 07/25/14) Home Medications Albuterol 8.5 Gm Hfa.aer.ad, 2 PUFF IH RTQ4HR, (Reported) 1 PUFFS Albuterol/Ipratropium 3 Ml Nebu, 3 ML INH Q4H PRN for PRN, (Reported) Ascorbate Calcium/Bioflav 1 Each Tablet, 1 EACH PO BID, (Reported) Budesonide/Formoterol Fumarate 10.2 Gm Hfa.aer.ad, 2 PUFF IH DAILY, (Reported) Cyanocobalamin/Folic Acid 1 Each Tablet, 1 EACH PO DAILY, (Reported) Metformin Hcl 500 Mg Tablet, 500 MG PO BID, (Reported) Multivitamins W-Minerals/Lut 1 Each Tablet, 1 EACH PO DAILY, (Reported) Rosuvastatin Calcium 20 Mg Tablet, 1 EACH PO DAILY, (Reported) Sawpalmtofrtxt/Zinc Picolinate 1 Each Capsule, 1 EACH PO BID, (Reported) Past Gxjrezd-Onwgdi-Lofedc Hx Past Med/Social Hx: Reviewed Nursing Past Med/Soc Hx Patient Social History Alcohol Use: Denies Use Recreational Drug Use: No Smoking Status: Former Smoker 2nd Hand Smoke Exposure: No Recent Foreign Travel: No Contact w/Someone Who Travel: No Recent Infectious Disease Expo: No Recent Hopitalizations: No Immunizations Up To Date Tetanus Booster (TDap): Less than 5yrs Date of Pneumonia Vaccine: Jun 20, 2013 Date of Influenza Vaccine: Mar 04, 2020 Seasonal Allergies Seasonal Allergies: No Past Medical History Surgeries: Yes Abdominal (Colonoscopy with polypectomy), Adenoidectomy, Tonsillectomy Respiratory: Yes COPD Cardiac: Yes High Cholesterol, Hypertension Neurological: No Genitourinary: No Gastrointestinal: No Musculoskeletal: No Endocrine: Yes Diabetes, Non-Insulin dep HEENT: No Cancer: No Psychosocial: No Integumentary: No Blood Disorders: No Review of Systems Time Seen by Provider: 16:30 Sepsis Event Evaluation Height, Weight, BMI Height: 5'9.00" Weight: 175lbs. oz. 79.823349lm; 26.48 BMI Method: Exam Exam Vital Signs Date Time Temp Pulse Resp B/P (MAP) Pulse Ox O2 Delivery O2 Flow Rate FiO2 05/21/20 12:33 78 05/21/20 12:00 36.0 82 18 142/79 (100) 95 Nasal Cannula 2.00 05/21/20 10:00 72 18 149/70 (96) 96 Nasal Cannula 2.00 05/21/20 09:00 75 18 145/88 (107) 94 Nasal Cannula 2.00 05/21/20 08:50 36.7 65 93 05/21/20 08:00 36.0 79 18 143/84 (103) 94 Nasal Cannula 2.00 05/21/20 08:00 Nasal Cannula 2.00 05/21/20 06:55 36.7 65 20 147/78 (101) 93 Nasal Cannula 2.00 05/21/20 06:54 69 05/21/20 06:40 65 20 147/79 (101) 93 Nasal Cannula 2.00 05/21/20 06:25 65 20 145/75 (98) 94 Nasal Cannula 2.00 05/21/20 06:10 64 20 136/78 (97) 94 Nasal Cannula 2.00 05/21/20 05:55 65 20 148/77 (100) 94 Nasal Cannula 2.00 05/21/20 05:40 65 20 145/78 (100) 95 Nasal Cannula 2.00 05/21/20 05:25 72 20 132/71 (91) 92 Nasal Cannula 2.00 05/21/20 05:10 35.8 74 20 160/70 94 Nasal Cannula 2.00 05/21/20 05:10 94 Nasal Cannula 2.00 05/21/20 05:10 35.8 74 20 160/70 (100) 94 Nasal Cannula 2.00 05/21/20 05:05 35.9 64 16 133/78 (124) 98 Nasal Cannula 3.00 05/21/20 00:34 Nasal Cannula 4.00 05/21/20 00:33 Nasal Cannula 4.0 05/21/20 00:33 35.9 75 16 170/101 (124) 98 Nasal Cannula 2.00 I & O 05/21/20 07:00 Intake Total 1110 ml Output Total 700 ml Balance 410 ml Height & Weight Height: 5'9.00" Weight: 175lbs. oz. 79.492106qx; 26.48 BMI Method: General Appearance: WD/WN, Moderate Distress HEENT: PERRL/EOMI, Normal ENT Inspection Neck: Normal Inspection Respiratory: Lungs Clear, No Accessory Muscle Use, No Respiratory Distress, Decreased Breath Sounds, Other (Diminished with decreased air movement. No renu k wheezing. 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 -Pt is ok from my standpoint for discharge with home 02 and PO Abx for 5- 7days. COPDAE -Solumedrol Change to Prednisone taper for discharge. HUBERT CHANG DO May 21, 2020 14:58
--- NOTE | 2020-05-21 15:25 | Discharge Inst-Simple/Standard ---
Discharge Inst-Standard Discharge Medications New, Converted or Re-Newed RX: Transmitted to Pharmacy Patient Instructions/Follow Up Plan of Care/Instructions/FU: Please continue to take your medications as written. Please follow up with your PCP to follow up this hospital stay. Activity as Tolerated: Yes Discharge Diet: Cardiac Diet Return to The Hospital For: Chest pain, shortness of breath, increased inhaler use, fever, confusion, if you feel you are getting worse. MALU MCNEILL MD May 21, 2020 15:25
--- NOTE | 2020-05-21 16:37 | NUR ---
CM FINALIZED DISCHARGE PLAN: Patient is dismissing to home today self care. He uses [facility] in [place] for his oxygen needs. Talked with them and they report that he uses 2LPM via NC continuous prior to this hospitalization. Patient currently using 2LPM o2 continuous here. Talked with Dr. Scott and order given to cancel home o2 study. That patient is instructed to use 2LPM via [place] continuous. Dr. Posada has seen the patient et is okay with the patient dismissing to home today. Waiting for Dr. Springer to round to determine if he also agrees with dismissal. Once that has happened then the patient is okay to dismiss home with his . Talked with primary care nurse Rahul about the above information. Addendum: 05/21/20 at 1707 by NORA HUNTER RN Patient uses [facility] in [place] as his preferred pharmacy.
--- NOTE | 2020-05-21 18:19 | Consultation-Cardiology ---
HPI-Cardiology Cardiology Consultation: Date of Consultation 05/21/20 Time Seen by a Provider: 17:50 Date of Admission Attending Physician Yaz Suh MD Admitting Physician Adriano Landeros DO Consulting Physician TIKI ROSARIO MD, MA, FACP, FACC, FSCAI, CCDS Physician requesting consult: Dr Scott HPI: Chief Complaint: CC: Chest discomfort HPI [address] to Dr Scott with chest pain: one episode only, occurred last night, lasted an hour, sharp, worse with deep breath, no recurrence, mod in inte nsity, associated with some shortness of breath, no other associated symptoms, no specific relief with NTG, resolved on its own. Has chronic, exertional shortness of breath. No palp or syncope. Review of Systems-Cardiology Review of Systems Constitutional: malaise; No weight loss, No weight gain Eyes: No vision change Ears/Nose/Throat: No nasal drainage Respiratory: As described under HPI Cardiovascular: As described under HPI Gastrointestinal: No diarrhea, No nausea, No vomiting Genitourinary: No dysuria, No hematuria, No urine frequency changes Musculoskeletal: No joint pain, No muscle pain Skin: No rash, No ulcerations Psychiatric/Neurological: No seizure, No focal weakness, No syncope Hematologic: No bleeding abnormalities GRO-Wapppy-Mbdqec Hx Patient Social History Alcohol Use: Denies Use Recreational Drug Use: No Smoking Status: Former Smoker 2nd Hand Smoke Exposure: No Recent Foreign Travel: No Recent Infectious Disease Expo: No Immunizations Up To Date Tetanus Booster (TDap): Less than 5yrs Date of Pneumonia Vaccine: Jun 20, 2013 Date of Influenza Vaccine: Mar 04, 2020 Past Medical History PMH As described under Assessment. Family Medical History Family Medical History: Does not report fam h/o early CAD Allergies and Home Medications Allergies Coded Allergies: No Known Drug Allergies (Unverified , 07/25/14) Home Medications Albuterol 8.5 Gm Hfa.aer.ad, 2 PUFF IH RTQ4HR, (Reported) 1 PUFFS Albuterol/Ipratropium 3 Ml Nebu, 3 ML INH Q4H PRN for PRN, (Reported) Ascorbate Calcium/Bioflav 1 Each Tablet, 1 EACH PO BID, (Reported) Budesonide/Formoterol Fumarate 10.2 Gm Hfa.aer.ad, 2 PUFF IH DAILY, (Reported) Cephalexin 500 Mg Capsule, 500 MG PO BID Prescribed by: MALU SCOTT on 05/21/201705 Cyanocobalamin/Folic Acid 1 Each Tablet, 1 EACH PO DAILY, (Reported) Metformin Hcl 500 Mg Tablet, 500 MG PO BID, (Reported) Multivitamins W-Minerals/Lut 1 Each Tablet, 1 EACH PO DAILY, (Reported) Prednisone 10 Mg Tab.ds.pk, 10 MG PO DAILY Take 6 tabs(60mg)daily,decrease by 1 tab(10MG)daily. Prescribed by: MALU SCOTT on 05/21/201705 Rosuvastatin Calcium 20 Mg Tablet, 1 EACH PO DAILY, (Reported) Sawpalmtofrtxt/Zinc Picolinate 1 Each Capsule, 1 EACH PO BID, (Reported) Patient Home Medication List Home Medication List Reviewed: Yes Physical Exam-Cardiology Physical Exam Vital Signs/I&O 05/21/20 05/21/20 05/21/20 05/21/20 06:25 06:40 06:54 06:55 Temp 36.7 Pulse 65 65 69 65 Resp 20 20 20 B/P (MAP) 145/75 (98) 147/79 (101) 147/78 (101) Pulse Ox 94 93 93 O2 Delivery Nasal Cannula Nasal Cannula Nasal Cannula O2 Flow Rate 2.00 2.00 2.00 05/21/20 05/21/20 05/21/20 05/21/20 08:00 08:00 08:50 09:00 Temp 36.0 36.7 Pulse 79 65 75 Resp 18 18 B/P (MAP) 143/84 (103) 145/88 (107) Pulse Ox 94 93 94 O2 Delivery Nasal Cannula Nasal Cannula Nasal Cannula O2 Flow Rate 2.00 2.00 2.00 05/21/20 05/21/20 05/21/20 05/21/20 10:00 12:00 12:33 15:25 Temp 36.0 36.0 Pulse 72 82 78 79 Resp 18 18 18 B/P (MAP) 149/70 (96) 142/79 (100) 143/84 (103) Pulse Ox 96 95 94 O2 Delivery Nasal Cannula Nasal Cannula Nasal Cannula O2 Flow Rate 2.00 2.00 2.00 Capillary Refill : Less Than 3 SecondsLess Than 3 Seconds Constitutional: AAO x 3, well-developed HEENT: EOMI, hearing is well preserved; No xanthelasmas are seen Neck: carotid pulses are 2 + bilaterally, with good upstrokes Respiratory: No accessory muscle use; other (fair to good air entry, prolonged exp, exp wheezes) Cardiovascular: S1 and S2, systolic murmur (soft THU at card base) Gastrointestinal: No soft, No guarding, No rebound; audible bowel sounds Extremities: No clubbing, No cyanosis, No significant edema Neurologic/Psychiatric: oriented x 3, other (moves all limbs equally) Skin: No rash on exposed areas, No ulcerations on exposed areas Data Review Labs Laboratory Tests 05/21/20 00:45: White Blood Count 26.4H, Red Blood Count 4.79, Hemoglobin 13.9, Hematocrit 42, Mean Corpuscular Volume 88, Mean Corpuscular Hemoglobin 29, Mean Corpuscular Hemoglobin Concent 33, Red Cell Distribution Width 14.7H, Platelet Count 262, Mean Platelet Volume 9.0, Immature Granulocyte % (Auto) 1, Neutrophils (%) (Auto) 83H, Lymphocytes (%) (Auto) 7L, Monocytes (%) (Auto) 8, Eosinophils (%) (Auto) 1, Basophils (%) (Auto) 1, Neutrophils # (Auto) 21.9H, Lymphocytes # (Auto) 1.9, Monocytes # (Auto) 2.0H, Eosinophils # (Auto) 0.3, Basophils # (Auto) 0.1, Immature Granulocyte # (Auto) 0.3H, Neutrophils % (Manual) 81, Lymphocytes % (Manual) 8, Monocytes % (Manual) 9, Band Neutrophils 2, Blood Morphology Comment NORMAL, Prothrombin Time 12.8, INR Comment 0.9, Activated Partial Thromboplast Time 32, D-Dimer < 0.27, Sodium Level 132L, Potassium Level 3.8, Chloride Level 95L, Carbon Dioxide Level 24, Anion Gap 13, Blood Urea Nitrogen 20H, Creatinine 0.94, Estimat Glomerular Filtration Rate > 60, BUN/Creatinine Ratio 21, Glucose Level 130H, Calcium Level 9.6, Corrected Calcium 9.3, Magnesium Level 1.8, Total Bilirubin 0.4, Aspartate Amino Transf (AST/SGOT) 16, Alanine Aminotransferase (ALT/SGPT) 15, Alkaline Phosphatase 68, Lactate Dehydrogenase 130, Myoglobin 48.5, Troponin I < 0.028, C-Reactive Protein High Sensitivity 0.30, B-Type Natriuretic Peptide 10.4, Total Protein 6.9, Albumin 4.4, Procalcitonin 0.02 05/21/20 00:50: Coronavirus 2019 (NANCY) Negative 05/21/20 01:40: Lactic Acid Level 1.38 05/21/20 02:55: Urine Color YELLOW, Urine Clarity CLEAR, Urine pH 6.5, Urine Specific [place] 1.015L, Urine Protein NEGATIVE, Urine Glucose (UA) NEGATIVE, Urine Ketones 1+H, Urine Nitrite NEGATIVE, Urine Bilirubin NEGATIVE, Urine Urobilinogen 0.2, Urine Leukocyte Esterase NEGATIVE, Urine RBC (Auto) NEGATIVE, Urine RBC NONE, Urine WBC NONE, Urine Squamous Epithelial Cells RARE, Urine Crystals NONE, Urine Bacteria NEGATIVE, Urine Casts NONE, Urine Mucus SMALLH, Urine Culture Indicated CULTURE PENDING 05/21/20 05:57: White Blood Count 19.9H, Red Blood Count 4.71, Hemoglobin 13.4, Hematocrit 41, Mean Corpuscular Volume 88, Mean Corpuscular Hemoglobin 29, Mean Corpuscular Hemoglobin Concent 32, Red Cell Distribution Width 14.6H, Platelet Count 278, Mean Platelet Volume 9.8, Immature Granulocyte % (Auto) 1, Neutrophils (%) (Aut o) 93H, Lymphocytes (%) (Auto) 3L, Monocytes (%) (Auto) 3, Eosinophils (%) (Auto) 0, Basophils (%) (Auto) 0, Neutrophils # (Auto) 18.4H, Lymphocytes # (Auto) 0.6L, Monocytes # (Auto) 0.7, Eosinophils # (Auto) 0.0, Basophils # ( Auto) 0.0, Immature Granulocyte # (Auto) 0.2H, Sodium Level 132L, Potassium Level 4.5, Chloride Level 96L, Carbon Dioxide Level 24, Anion Gap 12, Blood Urea Nitrogen 17, Creatinine 0.88, Estimat Glomerular Filtration Rate > 60, BUN/Creat inine Ratio 19, Glucose Level 150H, Calcium Level 9.0, Troponin I < 0.028 Microbiology 05/21/20 Influenza Types A,B Antigen (LUIS) - Final, Complete Laboratory Tests 05/21/20 00:45 05/21/20 05:57 A/P-Cardiology Assessment/Admission Diagnosis Chest discomfort w/o evidence of ACS COPD, managed by Dr Scott and Dr Posada Leucocytosis and elec abn,managed by Dr Scott Quit smoking in or around 2017 DM II, managed by pcp Hyperlipidemia, treated with statin, managed by pcp Discussion and Recomendations No evidence of ACS, but given nonspecific symptoms in the setting of multiple cor risk factors, a noninvasive cardiac w/u is recommended He does not wish to stay for any cardiac w/u. Says will f/u outpt We advised ASA and bb for now: ASA 81 daily and Toprol XL 25 daily Management of leucocytosis and elec abn is with the Hospitalist Chava (Dr Scott) Advised to continue to stay away from smoking cigs Clinical Quality Measures AMI/AHF: ASA po Prior to arrival: Yes DVT/VTE Risk/Contraindication: Risk Factor Score Per Nursin RFS Level Per Nursing on Admit: 3=High TIKI ROSARIO MD FACP FACC CCDS May 21, 2020 18:19
[2020-05-21] MEDS ORDERED: ASPIRIN E.C. 81 MG (ECOTRIN) TAB PO STA (18:24)
[2020-05-21] MEDS ORDERED: ASPI-1238 PO (18:44)
[2020-05-21] MEDS ORDERED: METO-351 PO (18:44)
--- NOTE | 2020-05-21 19:22 | NUR ---
ANGELO FRANZ demonstrates understanding of discharge instructions and accurately returns instructions upon questioning. Copy of Post-Discharge Instructions and Medication Discharge Instructions given to pt. ANGELO FRANZ is able to manage continuing needs after discharge. Patients belongings returned to pt. Skin dry and intact; no breakdown noted. Patient discharged from 425-1 on at 1922. ANGELO FRANZ left floor via wc, accompanied by staff.
[2020-05-21] MEDS ORDERED: ADVAIR HFA 115/21 MCG INHALER 8 GM IH SCH (21:00)
[2020-05-22] MEDS ORDERED: cefTRIAXone 1,000 MG/SWFI 10 ML IV PUSH IV SCH ×2 (06:00)
[2020-05-22] MEDS ORDERED: AZITHROMYCIN 250 MG TAB (ZITHROMAX) PO SCH (09:00)
== END 2020-05-21 19:22 | disposition home or self-care (01) ==
LOC: EDUNIT# 00:05 → ER 00:07 → 4TH 03:03
PROVIDERS: ADMIT Internal Medicine; ATTEND Internal Medicine
DX: J44.1 Chronic obstructive pulmonary disease with (acute) exacerbation (principal); I10 Essential (primary) hypertension; E78.5 Hyperlipidemia, unspecified; E11.9 Type 2 diabetes mellitus without complications; E78.00 Pure hypercholesterolemia, unspecified; I25.10 Atherosclerotic heart disease of native coronary artery without angina pectoris; Z79.51 Long term (current) use of inhaled steroids; Z79.84 Long term (current) use of oral hypoglycemic drugs; Z79.899 Other long term (current) drug therapy; Z20.828 Contact with and (suspected) exposure to other viral communicable diseases; Z87.891 Personal history of nicotine dependence
CPT/HCPCS: 71045; 71275; 80048; 80053; 81000; 83605; 83615; 83735; 83874; 83880; 84145; 84484; 85007; 85025; 85027; 85379; 85610; 85730; 86141; 87040; 87088; 87804; 93005; 93041; 99284; G0378; U0002; 36415; 87635

== ENCOUNTER → 2020-07-01 | Outpatient (CLI) | payer MEDICARE ==
[~2020-07-01] MED LIST changes: +ASPI-1238 PO; +AZIT250T12 PO; +CATHETER FLUSH 10 ML SYR IV PRN; +CEPH-507 PO; +HOLD METFORMIN - RECEIVED CONTRAST 20 ML VIAL IV SCH; +IOHEXOL 350 MG/ML 100 ML (OMNIPAQUE 350) VIAL IV ONE; +METO-351 PO; +NS 100 ML (IVPB) BAG IV ONE; +PRED10TA22 PO
[2020-07-01 09:21] LABS: BUN/CREATININE RATIO 18; CREATININE SERUM 0.94 MG/DL (0.60-1.30); GFR ESTIMATED > 60
--- NOTE | 2020-07-01 10:53 | Diagnostic Imaging Report ---
PROCEDURE: CT chest with contrast only. TECHNIQUE: Multiple contiguous axial images were obtained through the chest after administration of intravenous contrast. Auto Exposure Controls were utilized during the CT exam to meet ALARA standards for radiation dose reduction. INDICATION: Pneumonia. FINDINGS: The previous CTA chest exam of 05/21/2020 noted increased scarring in the lung bases and raise the possibility of an underlying acute infiltrate. On this exam, there is scar formation and fibrosis involving both lower lobes. The lung bases may be slightly better aerated than on the prior exam suggesting that there was indeed an element of mild acute pneumonia/atelectasis present. However, in the interval since the prior exam, a new 2.0 x 2.1 cm area of increased density has developed along the medial aspect of the left lung base near the diaphragm. This could be due to a new focus of pneumonia/atelectasis. The lung apices are clear. There are emphysematous changes involving both lungs. The heart size is within normal limits. Coronary artery calcifications are noted. The aorta is not abnormally dilated. There is no defect within the pulmonary arteries to indicate a pulmonary embolus, but the pulmonary arteries were not fully opacified and consequently difficult to assess. There is no mediastinal or hilar adenopathy. The thyroid gland is not enlarged. The sections through the upper abdomen failed to show any sign of an acute abnormality. The bone windows are unremarkable for fracture or for destructive lesion. IMPRESSION: 1. There are chronic pulmonary changes involving the lung bases. The lung bases do seem better aerated than on the prior exam and there may be an element of acute pneumonia/atelectasis present on the previous study. However, a new area of increased density has developed in the left lung base near the diaphragm. This finding does suggest mild pneumonia/atelectasis. Clinical follow-up is recommended. 2. There is no acute cardiopulmonary abnormality noted otherwise. Dictated by: Dictated on workstation # [id number]
== END ==
LOC: RAD FS 08:46
PROVIDERS: ATTEND Nurse Practitioner Family
DX: J18.9 Pneumonia, unspecified organism (principal); J98.4 Other disorders of lung
CPT/HCPCS: 36415; 71260; 82565; 84520

== ENCOUNTER → 2020-09-22 | Outpatient (CLI) | payer MEDICARE ==
[2020-09-22 08:16] LABS: BUN/CREATININE RATIO 18; CREATININE SERUM 0.89 MG/DL (0.60-1.30); GFR ESTIMATED > 60
== END ==
LOC: LAB FS 07:30
PROVIDERS: ATTEND Nurse Practitioner Family
DX: R91.8 Other nonspecific abnormal finding of lung field (principal)
CPT/HCPCS: 36415; 82565; 84520

== ENCOUNTER → 2020-09-22 | Outpatient (CLI) | payer MEDICARE ==
--- NOTE | 2020-09-22 11:06 | Diagnostic Imaging Report ---
EXAMINATION: CT Chest with intravenous contrast. TECHNIQUE: Multiple contiguous axial images were obtained through the chest after the uneventful administration of intravenous contrast. All CT scans use one or more of the following dose optimizing techniques: automated exposure control, MA and/or KvP adjustment based on a patient size and exam type, or iterative reconstruction. HISTORY: Pneumonia. COMPARISON: 07/01/2020 FINDINGS: There is mild basilar bronchiectasis and mucous plugging with a few tree-in-bud nodules, similar to prior exam. Findings likely reflect chronic aspiration. No edema. No pleural effusion. No pneumothorax. No suspicious nodules. There is no axillary or supraclavicular lymphadenopathy. There is no mediastinal lymphadenopathy. Heart size is normal. There are mild coronary artery calcifications. No pericardial effusion. Aorta is normal in caliber. Limited views of the upper abdomen are unremarkable. There are no suspicious osseous lesions. IMPRESSION: 1. Mild dependent bronchiectasis in the lower lobes with bronchial wall thickening and a few tree-in-bud nodules. Findings most suggestive of chronic or recurrent aspiration. Dictated by: Dictated on workstation # [id number]
== END ==
LOC: RAD FS 10:01
PROVIDERS: ATTEND Internal Medicine Critical Care Medicine
DX: J18.9 Pneumonia, unspecified organism (principal); J47.9 Bronchiectasis, uncomplicated
CPT/HCPCS: 71260